=== PATIENT | female | born 1960 | race Caucasian/White ===

== ENCOUNTER 2022-12-18 16:20 | Inpatient (IN) | payer OTHER ==
[~2022-12-18] VITALS: Ht 160 cm; Wt 98.4 kg
[2022-12-18 16:25] VITALS: BP_SYST 140; PULSE 57; RESP 32; TEMP 86.9; O2SAT 95
[2022-12-18 17:21] LABS: BASOPHILS # (AUTO) 0.1 K/uL (0.0-0.2); BASOPHILS % (AUTO) 0.6 % (0.0-2.0); EOSINOPHILS # (AUTO) 0.8 K/uL (0.0-0.4); EOSINOPHILS % (AUTO) 9.3 % (0.0-4.0); HEMATOCRIT 39.2 % (36-48); HEMOGLOBIN 12.9 g/dL (12.0-16.0); LYMPHOCYTES # (AUTO) 1.6 K/uL (1.0-5.5); LYMPHOCYTES % (AUTO) 17.6 % (20.5-51.5); MEAN CORPUSCULAR HEMOGLOBIN 30 pg (27-31); MEAN CORPUSCULAR HGB CONC 33 % (32-36); MEAN CORPUSCULAR VOLUME 92 fL (79.0-98.0); MONOCYTES # (AUTO) 0.8 K/uL (0.0-1.0); MONOCYTES % (AUTO) 8.6 % (1.7-9.3); NEUTROPHILS # (AUTO) 5.7 K/uL (1.8-7.7); NEUTROPHILS % (AUTO) 63.9 % (40.0-70.0); PLATELET COUNT (AUTO) 197 K/uL (130-430); RED BLOOD CELL COUNT(AUTO) 4.29 MIL/uL (4.2-6.2); RED CELL DISTRIBUTION WIDTH 13.6 % (9.0-15.0); WHITE BLOOD COUNT (AUTO) 8.9 K/uL (4.8-10.8)
[2022-12-18 17:35] LABS: ANION GAP 16 (5-15); CALCIUM 9.5 mg/dL (8.4-11.0); CHLORIDE 97 mmol/L (98-107); CREATININE 3.85 mg/dL (0.55-1.30); GFR AFRICAN AMERICAN 15 mL/min (>90); GLUCOSE 124 mg/dL (74-106); UREA NITROGEN, BLOOD 66 mg/dL (8-21)
[2022-12-18 18:10] LABS: ALANINE AMINOTRANSFERASE 23 U/L (12-78); ALBUMIN 3.3 g/dL (3.4-4.8); ASPARTATE AMINOTRANSFERASE 15 U/L (10-37); TOTAL BILIRUBIN 0.6 mg/dL (0.0-1.0)
[2022-12-18] MEDS ORDERED: NACL 0.9% 1,000 ML IV ONE (18:45)
[2022-12-18] MEDS ORDERED: PRO40 PO (20:05)
[2022-12-18] MEDS ORDERED: NEBI20TA2 PO (20:05)
[2022-12-18] MEDS ORDERED: VITD2000 PO (20:05)
[2022-12-18] MEDS ORDERED: VALA500T PO (20:05)
[2022-12-18] MEDS ORDERED: SPIR25TA6 PO (20:05)
[2022-12-18] MEDS ORDERED: ZOLP10TA2 PO (20:05)
[2022-12-18] MEDS ORDERED: AZIL80TA PO (20:05)
[2022-12-18] MEDS ORDERED: ESCI10TA PO (20:05)
[2022-12-18 21:46] LABS: BLOOD, URINE 3+ (NEGATIVE); COLOR,URINE YELLOW (YELLOW); GLUCOSE,URINE NEGATIVE (NEGATIVE); KETONES,URINE TRACE (NEGATIVE); LEUKOCYTE ESTERASE ,URINE TRACE (NEGATIVE); NITRITE, URINE NEGATIVE (NEGATIVE); PROTEIN URINE 1+ (NEGATIVE)
[2022-12-18 21:54] LABS: CLARITY/URINE HAZY (CLEAR)
[2022-12-18 21:56] LABS: BACTERIA,URINE FEW /HPF (None Seen); BILIRUBIN,URINE 2+ (NEGATIVE); MUCUS,URINE None Seen /LPF (None Seen); RBC,URINE 20-50 /HPF (0-3)
[2022-12-18] MEDS ORDERED: ZOLPIDEM TARTRATE 5 MG TABLET PO PRN (23:00)
[2022-12-18] MEDS ORDERED: ZOLPIDEM TARTRATE 5 MG TABLET ONE ×2 (23:29→23:40)
[2022-12-19] MEDS ORDERED: DIPHENHYDRAMINE INJ 50 MG/ML VIAL IVP ONE ×2 (03:45→08:15)
[2022-12-19] MEDS ORDERED: NALOXONE HCL 0.4 MG/ML AMP (NARCAN) IVP PRN ×2 (05:15)
[2022-12-19] MEDS ORDERED: LORazepam 2 MG/ML VIAL IVP PRN (05:15)
[2022-12-19] MEDS ORDERED: HYDROcodone/ACETAMIN 10-325 MG TAB PO PRN (05:15)
[2022-12-19] MEDS ORDERED: ACETAMINOPHEN 325 MG TABLET PO PRN (05:15)
[2022-12-19] MEDS ORDERED: ONDANSETRON HCL 4 MG/2 ML VIAL IVP PRN (05:15)
[2022-12-19] MEDS ORDERED: HYDROcodone/ACETAMIN 5-325 MG TAB (NORCO/ VICODIN) PO PRN (05:15)
[2022-12-19] MEDS: NACL 0.9% 1,000 ML IV SCH ×2 (06:48→15:15)
[2022-12-19 07:29] LABS: BASOPHILS # (AUTO) 0.1 K/uL (0.0-0.2); BASOPHILS % (AUTO) 0.7 % (0.0-2.0); EOSINOPHILS % (AUTO) 11.3 % (0.0-4.0); HEMOGLOBIN 11.7 g/dL (12.0-16.0); LYMPHOCYTES % (AUTO) 22.4 % (20.5-51.5); MEAN CORPUSCULAR HEMOGLOBIN 30 pg (27-31); MEAN CORPUSCULAR HGB CONC 33 % (32-36); MEAN CORPUSCULAR VOLUME 92 fL (79.0-98.0); MONOCYTES # (AUTO) 0.8 K/uL (0.0-1.0); MONOCYTES % (AUTO) 8.8 % (1.7-9.3); NEUTROPHILS % (AUTO) 56.8 % (40.0-70.0); PLATELET COUNT (AUTO) 183 K/uL (130-430); RED BLOOD CELL COUNT(AUTO) 3.93 MIL/uL (4.2-6.2); RED CELL DISTRIBUTION WIDTH 13.5 % (9.0-15.0); WHITE BLOOD COUNT (AUTO) 8.7 K/uL (4.8-10.8)
[2022-12-19 07:44] LABS: CALCIUM 8.8 mg/dL (8.4-11.0); CREATININE 3.03 mg/dL (0.55-1.30)
[2022-12-19] MEDS ORDERED: DIPHENHYDRAMINE INJ 50 MG/ML VIAL ONE (08:40)
[2022-12-19] MEDS ORDERED: ESCITALOPRAM OXALATE 10 MG TABLET PO SCH (09:00)
[2022-12-19] MEDS ORDERED: CHOLECALCIFEROL (VITAMIN D3) 2,000 UNIT TABLET PO SCH (09:00)
[2022-12-19] MEDS ORDERED: AZILSARTAN MEDOXOMIL PO SCH (09:00)
[2022-12-19] MEDS ORDERED: NEBIVOLOL HCL Non-Formulary 5 MG TABLET PO SCH (09:00)
[2022-12-19] MEDS: valACYclovir HCL 500 MG TABLET PO SCH (09:54)
[2022-12-19] MEDS: PANTOPRAZOLE SODIUM 40 MG TAB PO SCH (09:58)
[2022-12-19] MEDS: METOPROLOL TARTRATE 50 MG TABLET PO SCH ×2 (09:59→21:02)
[2022-12-19] MEDS: CITALOPRAM HYDROBROMIDE 20 MG TABLET PO SCH (09:59)
[2022-12-19] MEDS: SPIRONOLACTONE 25 MG TABLET (ALDACTONE) PO SCH (10:00)
[2022-12-19 11:30] VITALS: BP_SYST 129; PULSE 57; RESP 17; TEMP 97.6; O2SAT 95
[2022-12-19] MEDS: DIPHENHYDRAMINE HCL 50 MG CAPSULE PO PRN ×3 (13:06→21:02)
[2022-12-19 13:20] VITALS: O2SAT 95
[2022-12-19 13:47] VITALS: BP_SYST 129; PULSE 57; RESP 18; TEMP 97.3
[2022-12-19 16:38] VITALS: BP_SYST 130; PULSE 56; RESP 16; TEMP 97.8; O2SAT 98
[2022-12-19 20:30] VITALS: BP_SYST 137; PULSE 54; RESP 20; TEMP 98.2; O2SAT 95
[2022-12-19] MEDS: ZOLPIDEM TARTRATE 5 MG TABLET PO PRN (21:03)
[2022-12-20 01:00] VITALS: BP_SYST 135; PULSE 58; RESP 18; TEMP 98.1; O2SAT 96
[2022-12-20] MEDS: NACL 0.9% 1,000 ML IV SCH ×3 (01:15→21:30)
[2022-12-20 06:34] LABS: BASOPHILS # (AUTO) 0.1 K/uL (0.0-0.2); BASOPHILS % (AUTO) 1.3 % (0.0-2.0); EOSINOPHILS # (AUTO) 0.8 K/uL (0.0-0.4); EOSINOPHILS % (AUTO) 10.8 % (0.0-4.0); HEMATOCRIT 33.9 % (36-48); HEMOGLOBIN 10.9 g/dL (12.0-16.0); LYMPHOCYTES # (AUTO) 1.8 K/uL (1.0-5.5); MEAN CORPUSCULAR HEMOGLOBIN 30 pg (27-31); MEAN CORPUSCULAR HGB CONC 32 % (32-36); MEAN CORPUSCULAR VOLUME 92 fL (79.0-98.0); MONOCYTES # (AUTO) 0.6 K/uL (0.0-1.0); MONOCYTES % (AUTO) 8.9 % (1.7-9.3); NEUTROPHILS # (AUTO) 3.9 K/uL (1.8-7.7); PLATELET COUNT (AUTO) 197 K/uL (130-430); RED CELL DISTRIBUTION WIDTH 13.2 % (9.0-15.0); WHITE BLOOD COUNT (AUTO) 7.2 K/uL (4.8-10.8)
[2022-12-20 06:49] LABS: CREATININE 2.03 mg/dL (0.55-1.30); PHOSPHORUS 4.2 mg/dL (2.7-4.5)
[2022-12-20 07:53] VITALS: BP_SYST 123; PULSE 56; RESP 17; TEMP 97; O2SAT 95
[2022-12-20] MEDS: LOSARTAN POTASSIUM 50 MG TABLET (COZAAR) PO SCH (08:51)
[2022-12-20] MEDS: CHOLECALCIFEROL (VITAMIN D3) 5,000 UNIT TABLET PO SCH (08:51)
[2022-12-20] MEDS: CITALOPRAM HYDROBROMIDE 20 MG TABLET PO SCH (08:52)
[2022-12-20] MEDS: METOPROLOL TARTRATE 50 MG TABLET PO SCH ×2 (08:52→21:28)
[2022-12-20] MEDS: SPIRONOLACTONE 25 MG TABLET (ALDACTONE) PO SCH (08:53)
[2022-12-20] MEDS: PANTOPRAZOLE SODIUM 40 MG TAB PO SCH (08:54)
[2022-12-20] MEDS: valACYclovir HCL 500 MG TABLET PO SCH (08:54)
[2022-12-20 12:00] VITALS: BP_SYST 109; PULSE 52; RESP 18; TEMP 97.2; O2SAT 98
[2022-12-20 15:46] VITALS: BP_SYST 110; PULSE 55; RESP 20; TEMP 97; O2SAT 99
[2022-12-20 20:30] VITALS: BP_SYST 114; PULSE 58; RESP 18; TEMP 98.2; O2SAT 96
[2022-12-20] MEDS: ZOLPIDEM TARTRATE 5 MG TABLET PO PRN (21:29)
[2022-12-20] MEDS: DIPHENHYDRAMINE HCL 50 MG CAPSULE PO PRN (21:29)
[2022-12-21 00:36] VITALS: BP_SYST 121; PULSE 59; RESP 17; TEMP 96.7; O2SAT 97
[2022-12-21 05:39] LABS: BASOPHILS # (AUTO) 0.1 K/uL (0.0-0.2); BASOPHILS % (AUTO) 1.2 % (0.0-2.0); EOSINOPHILS # (AUTO) 0.7 K/uL (0.0-0.4); EOSINOPHILS % (AUTO) 9.9 % (0.0-4.0); HEMATOCRIT 32.1 % (36-48); HEMOGLOBIN 10.5 g/dL (12.0-16.0); LYMPHOCYTES # (AUTO) 1.9 K/uL (1.0-5.5); LYMPHOCYTES % (AUTO) 27.8 % (20.5-51.5); MEAN CORPUSCULAR HEMOGLOBIN 30 pg (27-31); MEAN CORPUSCULAR HGB CONC 33 % (32-36); MEAN CORPUSCULAR VOLUME 92 fL (79.0-98.0); MONOCYTES # (AUTO) 0.6 K/uL (0.0-1.0); MONOCYTES % (AUTO) 8.2 % (1.7-9.3); NEUTROPHILS # (AUTO) 3.6 K/uL (1.8-7.7); NEUTROPHILS % (AUTO) 52.9 % (40.0-70.0); PLATELET COUNT (AUTO) 211 K/uL (130-430); RED CELL DISTRIBUTION WIDTH 13.3 % (9.0-15.0); WHITE BLOOD COUNT (AUTO) 6.9 K/uL (4.8-10.8)
[2022-12-21 06:07] LABS: ALBUMIN 2.7 g/dL (3.4-4.8); CALCIUM 8.6 mg/dL (8.4-11.0); CREATININE 1.6 mg/dL (0.55-1.30); PHOSPHORUS 3.1 mg/dL (2.7-4.5); TOTAL BILIRUBIN 0.4 mg/dL (0.0-1.0)
[2022-12-21] MEDS: NACL 0.9% 1,000 ML IV SCH ×2 (07:15→21:32)
[2022-12-21 08:00] VITALS: BP_SYST 131; PULSE 53; RESP 18; TEMP 96.9; O2SAT 98
[2022-12-21] MEDS: CHOLECALCIFEROL (VITAMIN D3) 5,000 UNIT TABLET PO SCH (09:50)
[2022-12-21] MEDS: CITALOPRAM HYDROBROMIDE 20 MG TABLET PO SCH (09:50)
[2022-12-21] MEDS: METOPROLOL TARTRATE 50 MG TABLET PO SCH ×2 (09:51→21:31)
[2022-12-21] MEDS: valACYclovir HCL 500 MG TABLET PO SCH (09:51)
[2022-12-21] MEDS: PANTOPRAZOLE SODIUM 40 MG TAB PO SCH (09:52)
[2022-12-21] MEDS: LOSARTAN POTASSIUM 50 MG TABLET (COZAAR) PO SCH (09:53)
[2022-12-21] MEDS: SPIRONOLACTONE 25 MG TABLET (ALDACTONE) PO SCH (09:53)
[2022-12-21] MEDS ORDERED: LOSA50TA3 PO (09:57)
[2022-12-21] MEDS ORDERED: METO-442 PO ×2 (09:57)
[2022-12-21 11:53] VITALS: BP_SYST 100; PULSE 54; RESP 20; TEMP 98.1; O2SAT 98
[2022-12-21 16:00] VITALS: BP_SYST 114; PULSE 55; RESP 20; TEMP 97.5; O2SAT 98
[2022-12-21 20:30] VITALS: BP_SYST 135; PULSE 57; RESP 18; TEMP 98.1; O2SAT 96
[2022-12-21] MEDS: ZOLPIDEM TARTRATE 5 MG TABLET PO PRN (21:29)
[2022-12-21] MEDS: DIPHENHYDRAMINE HCL 50 MG CAPSULE PO PRN (21:30)
[2022-12-21 22:00] VITALS: O2SAT 97
[2022-12-22] VITALS (7 sets, daily range): BP systolic 128–143; PULSE 49–65; RESP 16–20; TEMP 96.9–98; O2SAT 93–99
[2022-12-22] MEDS: NACL 0.9% 1,000 ML IV SCH ×3 (04:10→21:01)
[2022-12-22 05:19] LABS: BASOPHILS # (AUTO) 0.1 K/uL (0.0-0.2); BASOPHILS % (AUTO) 0.7 % (0.0-2.0); EOSINOPHILS # (AUTO) 0.6 K/uL (0.0-0.4); EOSINOPHILS % (AUTO) 7.8 % (0.0-4.0); HEMOGLOBIN 10.6 g/dL (12.0-16.0); LYMPHOCYTES % (AUTO) 27.6 % (20.5-51.5); MEAN CORPUSCULAR HEMOGLOBIN 30 pg (27-31); MEAN CORPUSCULAR HGB CONC 33 % (32-36); MEAN CORPUSCULAR VOLUME 92 fL (79.0-98.0); MONOCYTES # (AUTO) 0.6 K/uL (0.0-1.0); MONOCYTES % (AUTO) 8.5 % (1.7-9.3); NEUTROPHILS # (AUTO) 4.1 K/uL (1.8-7.7); NEUTROPHILS % (AUTO) 55.4 % (40.0-70.0); PLATELET COUNT (AUTO) 208 K/uL (130-430); RED BLOOD CELL COUNT(AUTO) 3.49 MIL/uL (4.2-6.2); RED CELL DISTRIBUTION WIDTH 13.2 % (9.0-15.0); WHITE BLOOD COUNT (AUTO) 7.3 K/uL (4.8-10.8)
[2022-12-22 06:01] LABS: CALCIUM 8.8 mg/dL (8.4-11.0); CREATININE 1.44 mg/dL (0.55-1.30); PHOSPHORUS 3.2 mg/dL (2.7-4.5)
[2022-12-22 06:07] LABS: HEPATITIS B SURFACE AG Negative (Negative); HEPATITIS C VIRUS AB Non Reactive (Non Reactive)
[2022-12-22] MEDS: CITALOPRAM HYDROBROMIDE 20 MG TABLET PO SCH (08:59)
[2022-12-22] MEDS: SPIRONOLACTONE 25 MG TABLET (ALDACTONE) PO SCH (08:59)
[2022-12-22] MEDS: CHOLECALCIFEROL (VITAMIN D3) 5,000 UNIT TABLET PO SCH (08:59)
[2022-12-22] MEDS: valACYclovir HCL 500 MG TABLET PO SCH (08:59)
[2022-12-22] MEDS: PANTOPRAZOLE SODIUM 40 MG TAB PO SCH (08:59)
[2022-12-22] MEDS: METOPROLOL TARTRATE 50 MG TABLET PO SCH ×2 (09:00→21:00)
[2022-12-22] MEDS: LOSARTAN POTASSIUM 50 MG TABLET (COZAAR) PO SCH (09:00)
[2022-12-22 09:45] LABS: FREE T4 (FREE THYROXINE) 1.3 ng/dL (0.6-1.6); THYROID STIMULATING HORMONE 1.86 uIu/mL (0.34-4.82)
[2022-12-22] MEDS: DIPHENHYDRAMINE HCL 50 MG CAPSULE PO PRN (21:17)
[2022-12-22] MEDS: ZOLPIDEM TARTRATE 5 MG TABLET PO PRN (23:12)
[2022-12-23] VITALS: BP_SYST 141; PULSE 52; RESP 18; TEMP 98.6; O2SAT 98
[2022-12-23 08:00] VITALS: BP_SYST 134; PULSE 53; RESP 18; TEMP 97.3; O2SAT 97
[2022-12-23] MEDS: CITALOPRAM HYDROBROMIDE 20 MG TABLET PO SCH (08:50)
[2022-12-23] MEDS: valACYclovir HCL 500 MG TABLET PO SCH (08:51)
[2022-12-23] MEDS: PANTOPRAZOLE SODIUM 40 MG TAB PO SCH (08:51)
[2022-12-23] MEDS: CHOLECALCIFEROL (VITAMIN D3) 5,000 UNIT TABLET PO SCH (08:51)
[2022-12-23] MEDS: METOPROLOL TARTRATE 50 MG TABLET PO SCH (08:51)
[2022-12-23] MEDS: NACL 0.9% 1,000 ML IV SCH (09:15)
[2022-12-23 12:00] VITALS: BP_SYST 105; PULSE 60; RESP 18; TEMP 97.5; O2SAT 98
[2022-12-23] MEDS ORDERED: METO-442 PO (14:18)
[2022-12-23 15:14] VITALS: BP_SYST 133; PULSE 72; RESP 18; TEMP 97.6; O2SAT 98
== END 2022-12-23 16:46 | disposition home or self-care (01) | DRG 683 ==
LOC: SED 16:20 → STU 19:01 → SMU 12-23 12:47
PROVIDERS: ADMIT Specialist; ATTEND Specialist
DX: N17.9 Acute kidney failure, unspecified (principal); E87.1 Hypo-osmolality and hyponatremia; I13.0 Hypertensive heart and chronic kidney disease with heart failure and stage 1 through stage 4 chronic kidney disease, or unspecified chronic kidney disease; I50.32 Chronic diastolic (congestive) heart failure; N04.9 Nephrotic syndrome with unspecified morphologic changes; E87.5 Hyperkalemia; E86.0 Dehydration; R06.03 Acute respiratory distress; Z20.822 Contact with and (suspected) exposure to COVID-19; D63.8 Anemia in other chronic diseases classified elsewhere; R00.1 Bradycardia, unspecified; E66.9 Obesity, unspecified; Z68.38 Body mass index [BMI] 38.0-38.9, adult; N18.30 Chronic kidney disease, stage 3 unspecified; F41.9 Anxiety disorder, unspecified; F32.A Depression, unspecified; I95.9 Hypotension, unspecified; R19.7 Diarrhea, unspecified
CPT/HCPCS: 36415; 71045; 76770; 80048; 80053; 81000; 83605; 83735; 83880; 84100; 84439; 84443; 84484; 85025; 86803; 87340; 93005; 93306; 96361; 96374; 96375; 99285; G0378; J1200; J7030; J7040; Q0163